=== PATIENT | male | born 1950 ===

== ENCOUNTER 2018-04-28 21:38 | Emergency (ER) | payer SELFPAY ==
--- NOTE | 2018-04-28 22:42 | C.PDOC ---
History Of Present Illness 68 year old male with no significant PMHx is brought to the ED by EMS for public intoxication. Patient was seen by bystander stumbling on the street intoxicated and called EMS. Patient admits to drinking alcohol tonight, states he drinks sometimes. Patient's daughter called ED department and reports patient does have a problem with alcohol, daughter will send and Uber for the patient once he is clinically sober. Patient denies SI/HI, hallucinations, fever, chills, headache, LOC, visual changes, nausea, vomit, CP, SOB, abdominal pain, injury, fall, trauma, weakness, numbness. Time Seen by Provider: 04/28/18 21:49 Chief Complaint (Nursing): Substance Abuse History Per: Patient, EMS History/Exam Limitations: intoxication Onset/Duration Of Symptoms: Hrs Current Symptoms Are (Timing): Still Present Suicide/Self Injury Attempted (Context): None Modifying Factor(s): Alcohol Associated Symptoms: denies: Depression, Suicidal Thoughts, Suicidal Plan Recent travel outside of the [place]: No Additional History Per: Patient, EMS Past Medical History Reviewed: Historical Data, Nursing Documentation, Vital Signs Vital Signs: Last Vital Signs Temp 98.2 F 04/28/18 21:45 Pulse 125 H 04/28/18 21:45 Resp 16 04/28/18 21:45 BP 189/110 H 04/28/18 21:45 Pulse Ox 95 04/28/18 21:45 - Medical History PMH: No Chronic Diseases Surgical History: No Surg Hx Family History: States: Unknown Family Hx - Social History Hx Tobacco Use: No Hx Alcohol Use: Yes Hx Substance Use: No Review Of Systems Constitutional: Negative for: Fever, Chills Eyes: Negative for: Vision Change Cardiovascular: Negative for: Chest Pain, Palpitations Respiratory: Negative for: Cough, Shortness of Breath Gastrointestinal: Negative for: Nausea, Vomiting, Abdominal Pain Skin: Negative for: Rash Neurological: Negative for: Weakness, Numbness, Headache Psych: Negative for: Depression, Suicidal ideation Physical Exam - Physical Exam Appears: Non-toxic, No Acute Distress, Other (intoxicated) Skin: Normal Color, Warm, Dry Head: Atraumatic, Normacephalic Eye(s): bilateral: Normal Inspection, PERRL, EOMI Oral Mucosa: Moist Neck: Normal ROM, No Midline Cervical Tenderness, Supple Chest: Symmetrical, No Tenderness Cardiovascular: Rhythm Regular Respiratory: Normal Breath Sounds, No Rales, No Rhonchi, No Wheezing Gastrointestinal/Abdominal: Soft, No Tenderness, No Guarding, No Rebound Back: No Vertebral Tenderness Extremity: Bilateral: Atraumatic, Normal Color And Temperature, Normal ROM Neurological/Psych: Oriented x3, Normal Speech Gait: Steady ED Course And Treatment O2 Sat by Pulse Oximetry: 95 (ON RA) Pulse Ox Interpretation: Normal Medical Decision Making Medical Decision Making: Plan: * accucheck 132 * Observe in the ED until clinically sober, RN will contact daughter to have patient picked up Disposition - Disposition Disposition Time: 23:48 Condition: STABLE Forms: [employer] (Persian) - Clinical Impression Clinical Impression: Alcohol intoxication - Scribe Statement The provider has reviewed the documentation as recorded by the Scribe Chucho Day All medical record entries made by the Scribe were at my direction and personally dictated by me. I have reviewed the chart and agree that the record accurately reflects my personal performance of the history, physical exam, medical decision making, and the department course for this patient. I have also personally directed, reviewed, and agree with the discharge instructions and disposition. Physician Patient Turnover Patient Signed Over To: Starr Ramírez Handoff Comments: pending sobreity
[2018-04-29 03:43] VITALS: RESP 20
[2018-04-29 05:54] VITALS: BP 135/80; PULSE 114; TEMP 98; O2SAT 98
== END 2018-04-29 06:41 | disposition home or self-care (01) ==
LOC: C.ER 21:38
DX: F10.129 Alcohol abuse with intoxication, unspecified (principal)